=== PATIENT | female | born 1970 | race Two or more races ===

== ENCOUNTER 2019-06-01 12:25 | Inpatient (IN) | payer OTHER ==
[~2019-06-01] VITALS: Ht 167.6 cm; Wt 127.0 kg
[2019-06-01] MEDS ORDERED: SYNTHROID100 MCG (12:32)
--- NOTE | 2019-06-01 12:33 | NUR ---
PACIENTE VERBALIZA DOLOR ABDOMINAL DESDE HOY EN LA MANANA. LA MISMA ALERTA Y ORIENTADA EN LAS MONIQUE ESFERAS. SE COLOCA PACIENTE EN AREA DE PASILLO PARA EVALUACION MEDICA.
--- NOTE | 2019-06-01 13:22 | NUR ---
SE ORIENTA A PTE SOBRE PROCESO DE VENOPUNCION, YENI DE MUESTRAS, ADMINISTRACION DE MED. PTE REFIERE ENTENDER INF RESHMA POR RN DE TURNO. SE MANTIENE PTE BAJO OBSERVACION RECIBIENDO TRATAMIENTO MEDICO.
--- NOTE | 2019-06-01 23:24 | NUR ---
SE RECIEBE PTE FEMENIA DE 48 YRS ALERTA CONCIENTE Y TRANQUILA EN COMPANIA DE FAMILIAR. PTE CON H/L PANTENTE Y PETAR DE EDEMA. SE MANTIENE EN ESPERA DE MEDICO CONSULTOR DR.MARCUS JUNIOR, SE MANTIENE BAJO OBSERVACION.
--- NOTE | 2019-06-02 07:00 | NUR ---
PACIENTE ALERTA Y ORIENTADA EN ROSEMARY MONIQUE ESFERAS, PRESENTA BUEN PATRON RESPIRATORIO Y PETAR DE DOLOR. CANALIZADA EN BRAZO LT PATENTE Y PETAR DE S/S DE FLEBITIS E INFILTRACION, AL MOMENTO NO RECIBE IVF'S. PENDIENTE EVLAUACION CON MEDICINA INTERNA CON DR Aida JUNIOR POR COLELITIASIS CON ENZIMAS DEL HIGADO ELEVADAS.
== END 2019-06-08 17:26 | disposition home or self-care (01) | DRG 446 ==
LOC: ER 12:25 → SEC-K 06-02 12:21 → MEDJ 06-02 12:21
PROVIDERS: ADMIT Specialist
PROC: BF37ZZZ Magnetic Resonance Imaging (MRI) of Pancreas (ICD-10-PCS; principal; 2019-06-02)
DX: K80.11 Calculus of gallbladder with chronic cholecystitis with obstruction (principal); E66.01 Morbid (severe) obesity due to excess calories; E03.8 Other specified hypothyroidism

== ENCOUNTER 2019-06-26 05:30 | Day surgery (SDC) | payer OTHER ==
[~2019-06-26 05:30] MED LIST: SYNTHROID100 MCG
[2019-06-26] MEDS ORDERED: ULTRACET PO (12:36)
[2019-06-26] MEDS ORDERED: KEFLEX500 MG PO (12:36)
== END 2019-06-26 15:20 | disposition home or self-care (01) ==
LOC: CIR.AMB 05:30
DX: K80.10 Calculus of gallbladder with chronic cholecystitis without obstruction (principal); K66.0 Peritoneal adhesions (postprocedural) (postinfection)